=== PATIENT | male | born 1990 | race American Indian/Alaskan Native ===

== ENCOUNTER 2018-07-30 22:02 | Emergency (ER) | payer OTHER ==
[2018-07-30 23:11] VITALS: BP 133/89
--- NOTE | 2018-07-31 03:06 | Emergency Department Report ---
ED ENT HPI - General Chief complaint: Earache Stated complaint: FOREIGN OBJECT IN EARLOBE Time Seen by Provider: 07/31/18 02:57 Source: patient Mode of arrival: Ambulatory Limitations: No Limitations - History of Present Illness Initial comments: 27-year-old -British male comes to the emergency room stating his earring back stuck to his left earlobe for 15 years. Patient denies any pain but reports it itches. Patient has a past medical history schizophrenia. Patient denies any fever chills nausea vomiting. -: year(s) (15) Location: L ear Associated Symptoms: denies: fever, cough, gum swelling, toothache, pain with swallowing, sore throat, tinnitus, hearing loss, discharge from ear, rhinorrhea, other - Related Data Home Medications Medication Instructions Recorded Confirmed Last Taken Acetaminophen [Acetaminophen TAB] 650 mg PO Q6HR PRN 02/19/13 02/19/13 02/18/13 06:35 Benztropine [Cogentin] 02/19/13 02/19/13 Unknown Benztropine [Cogentin] 1 mg PO BID 02/19/13 02/19/13 02/19/13 09:00 Ibuprofen [Motrin 400 MG tab] 400 mg PO Q6H PRN 02/19/13 02/19/13 02/18/13 19:30 Loperamide [Imodium A-D] 4 mg PO ONCE 02/19/13 02/19/13 Unknown Loratadine [Claritin] 10 mg PO DAILY 02/19/13 02/19/13 Unknown Mag Hydrox/Al Hydrox/Simeth 30 ml PO Q4H PRN 02/19/13 02/19/13 Unknown [Mylanta Liq] Magnesium Hydroxide [Milk of 30 ml PO QDAY 02/19/13 02/19/13 Unknown Magnesia] OLANzapine (NF) [ZyPREXA (NF)] 5 mg IM Q6H 02/19/13 02/19/13 Unknown OLANzapine [ZyPREXA] 5 mg PO QDAY 02/19/13 02/19/13 Unknown Ziprasidone Mesylate [Geodon] 20 mg PO Q6H PRN 02/19/13 02/19/13 02/18/13 22:50 Zydis 10 mg PO QHS 02/19/13 02/19/13 02/18/13 21:00 diphenhydrAMINE [Benadryl CAP] 50 mg PO QHS 02/19/13 02/19/13 02/18/13 21:00 hydrOXYzine PAMOATE (NF) [Vistaril 25 mg PO BID 02/19/13 02/19/13 02/19/13 09:00 (Nf)] Previous Rx's Medication Instructions Recorded Last Taken Type ALBUTEROL Inhaler (OR & NICU) 2 puff IH QID PRN 10 Days 02/19/13 Unknown Rx [ProAir HFA Inhaler] inhalation Albuterol Sulfate [Albuterol 0.63%] 0.63 mg IH TID PRN #1 box 02/19/13 Unknown Rx Azithromycin [Zithromax TAB] 500 mg PO QDAY 7 Days tablet 02/19/13 Unknown Rx Prednisone 50 mg PO QDAY 5 Days tablet 02/19/13 Unknown Rx Cephalexin [Keflex] 500 mg PO BID 7 Days #14 capsule 07/31/18 Unknown Rx Ibuprofen [Motrin 600 MG tab] 600 mg PO Q8H PRN #15 tablet 07/31/18 Unknown Rx Allergies Allergy/AdvReac Type Severity Reaction Status Date / Time acetaminophen [From Tylenol] Allergy Unknown Verified 07/30/18 22:09 guaifenesin [From Robitussin] Allergy Dizziness Verified 02/19/13 15:53 ED Dental HPI - General Chief complaint: Earache Stated complaint: FOREIGN OBJECT IN EARLOBE Time Seen by Provider: 07/31/18 02:57 Source: patient Mode of arrival: Ambulatory Limitations: No Limitations - Related Data Home Medications Medication Instructions Recorded Confirmed Last Taken Acetaminophen [Acetaminophen TAB] 650 mg PO Q6HR PRN 02/19/13 02/19/13 02/18/13 06:35 Benztropine [Cogentin] 02/19/13 02/19/13 Unknown Benztropine [Cogentin] 1 mg PO BID 02/19/13 02/19/13 02/19/13 09:00 Ibuprofen [Motrin 400 MG tab] 400 mg PO Q6H PRN 02/19/13 02/19/13 02/18/13 19:30 Loperamide [Imodium A-D] 4 mg PO ONCE 02/19/13 02/19/13 Unknown Loratadine [Claritin] 10 mg PO DAILY 02/19/13 02/19/13 Unknown Mag Hydrox/Al Hydrox/Simeth 30 ml PO Q4H PRN 02/19/13 02/19/13 Unknown [Mylanta Liq] Magnesium Hydroxide [Milk of 30 ml PO QDAY 02/19/13 02/19/13 Unknown Magnesia] OLANzapine (NF) [ZyPREXA (NF)] 5 mg IM Q6H 02/19/13 02/19/13 Unknown OLANzapine [ZyPREXA] 5 mg PO QDAY 02/19/13 02/19/13 Unknown Ziprasidone Mesylate [Geodon] 20 mg PO Q6H PRN 02/19/13 02/19/13 02/18/13 22:50 Zydis 10 mg PO QHS 02/19/13 02/19/13 02/18/13 21:00 diphenhydrAMINE [Benadryl CAP] 50 mg PO QHS 02/19/13 02/19/13 02/18/13 21:00 hydrOXYzine PAMOATE (NF) [Vistaril 25 mg PO BID 02/19/13 02/19/13 02/19/13 09:00 (Nf)] Previous Rx's Medication Instructions Recorded Last Taken Type ALBUTEROL Inhaler (OR & NICU) 2 puff IH QID PRN 10 Days 02/19/13 Unknown Rx [ProAir HFA Inhaler] inhalation Albuterol Sulfate [Albuterol 0.63%] 0.63 mg IH TID PRN #1 box 02/19/13 Unknown Rx Azithromycin [Zithromax TAB] 500 mg PO QDAY 7 Days tablet 02/19/13 Unknown Rx Prednisone 50 mg PO QDAY 5 Days tablet 02/19/13 Unknown Rx Cephalexin [Keflex] 500 mg PO BID 7 Days #14 capsule 07/31/18 Unknown Rx Ibuprofen [Motrin 600 MG tab] 600 mg PO Q8H PRN #15 tablet 07/31/18 Unknown Rx Allergies Allergy/AdvReac Type Severity Reaction Status Date / Time acetaminophen [From Tylenol] Allergy Unknown Verified 07/30/18 22:09 guaifenesin [From Robitussin] Allergy Dizziness Verified 02/19/13 15:53 ED Review of Systems ROS: Stated complaint: FOREIGN OBJECT IN EARLOBE Other details as noted in HPI Comment: All other systems reviewed and negative ED Past Medical Hx - Past Medical History Hx Psychiatric Treatment: Yes Hx Asthma: Yes Additional medical history: hx of schizophrenia - Social History Smoking Status: Current Every Day Smoker Substance Use Type: None - Medications Home Medications: Home Medications Medication Instructions Recorded Confirmed Last Taken Type ALBUTEROL Inhaler (OR & NICU) 2 puff IH QID PRN 10 Days 02/19/13 Unknown Rx [ProAir HFA Inhaler] inhalation Acetaminophen [Acetaminophen TAB] 650 mg PO Q6HR PRN 02/19/13 02/19/13 02/18/13 06:35 History Albuterol Sulfate [Albuterol 0.63%] 0.63 mg IH TID PRN #1 box 02/19/13 Unknown Rx Azithromycin [Zithromax TAB] 500 mg PO QDAY 7 Days tablet 02/19/13 Unknown Rx Benztropine [Cogentin] 02/19/13 02/19/13 Unknown History Benztropine [Cogentin] 1 mg PO BID 02/19/13 02/19/13 02/19/13 09:00 History Ibuprofen [Motrin 400 MG tab] 400 mg PO Q6H PRN 02/19/13 02/19/13 02/18/13 19:30 History Loperamide [Imodium A-D] 4 mg PO ONCE 02/19/13 02/19/13 Unknown History Loratadine [Claritin] 10 mg PO DAILY 02/19/13 02/19/13 Unknown History Mag Hydrox/Al Hydrox/Simeth 30 ml PO Q4H PRN 02/19/13 02/19/13 Unknown History [Mylanta Liq] Magnesium Hydroxide [Milk of 30 ml PO QDAY 02/19/13 02/19/13 Unknown History Magnesia] OLANzapine (NF) [ZyPREXA (NF)] 5 mg IM Q6H 02/19/13 02/19/13 Unknown History OLANzapine [ZyPREXA] 5 mg PO QDAY 02/19/13 02/19/13 Unknown History Prednisone 50 mg PO QDAY 5 Days tablet 02/19/13 Unknown Rx Ziprasidone Mesylate [Geodon] 20 mg PO Q6H PRN 02/19/13 02/19/13 02/18/13 22:50 History Zydis 10 mg PO QHS 02/19/13 02/19/13 02/18/13 21:00 History diphenhydrAMINE [Benadryl CAP] 50 mg PO QHS 02/19/13 02/19/13 02/18/13 21:00 History hydrOXYzine PAMOATE (NF) [Vistaril 25 mg PO BID 02/19/13 02/19/13 02/19/13 09:00 History (Nf)] Cephalexin [Keflex] 500 mg PO BID 7 Days #14 capsule 07/31/18 Unknown Rx Ibuprofen [Motrin 600 MG tab] 600 mg PO Q8H PRN #15 tablet 07/31/18 Unknown Rx ED Physical Exam - General Limitations: No Limitations General appearance: alert, in no apparent distress - Eye Eye exam: Present: normal appearance, EOMI. Absent: PERRL - Expanded ENT Exam Expanded Ear exam: Present: other (earlobe foreign body) ED Course Vital Signs 07/30/18 23:09 Temperature 98.6 F Pulse Rate 70 Respiratory 18 Rate Blood Pressure 133/89 O2 Sat by Pulse 97 Oximetry - Procedure Description Procedures done: Left earlobe cleaned with Betadine use lidocaine 1% without lidocaine injected into posterior earlobe with patient had his ears pierced. She is a 16 blade for incision to left earlobe were ear ring opening. Provider use hemostat to grasp foreign body and was able to pull foreign body out with some effort. Patient tolerated procedure well. ED Medical Decision Making - Medical Decision Making Patient has been evaluated by this provider and a ACC. Foreign body removed from left earlobe with 2 sutures placed. Patient was placed on Keflex and ibuprofen for pain and prophylaxis for infection. Discussed the patient to return back in 7 days to have sutures removed. Patient verbalized understanding. Patient is very appreciative for having foreign body removed from his left earlobe. Critical care attestation.: If time is entered above; I have spent that time in minutes in the direct care of this critically ill patient, excluding procedure time. ED Disposition Clinical Impression: Penetrating foreign body of skin of left earlobe Qualifiers: Encounter type: initial encounter Qualified Code(s): S01.342A - Puncture wound with foreign body of left ear, initial encounter Disposition: TO HOME OR SELFCARE Is pt being admited?: No Does the pt Need Aspirin: No Condition: Stable Additional Instructions: Please complete antibiotics as prescribed. Pain medication as needed follow-up with a primary care provider if there is any signs of infection such as swelling increased pain purely discharge. You need to return back in 7 days to have suture removed from left earlobe. Prescriptions: Cephalexin [Keflex] 500 mg PO BID 7 Days #14 capsule Ibuprofen [Motrin 600 MG tab] 600 mg PO Q8H PRN #15 tablet PRN Reason: Pain Referrals: BRAYDON BELL MD [Primary Care Provider] - 3-5 Days
[2018-07-31] MEDS ORDERED: XYLOCAINE 1% MPF 5 mL ONE (03:38)
[2018-07-31] MEDS ORDERED: XYLOCAINE 1% MPF 5 mL INFILTRATI ONE (03:38)
== END 2018-07-31 04:05 | disposition home or self-care (01) ==
LOC: ED 22:02
DX: S01.342A Puncture wound with foreign body of left ear, initial encounter (principal); J45.909 Unspecified asthma, uncomplicated; F20.9 Schizophrenia, unspecified; F17.200 Nicotine dependence, unspecified, uncomplicated; Z79.899 Other long term (current) drug therapy; Z88.8 Allergy status to other drugs, medicaments and biological substances; W22.8XXA Striking against or struck by other objects, initial encounter; Y93.89 Activity, other specified; Y99.8 Other external cause status; Y92.89 Other specified places as the place of occurrence of the external cause